=== PATIENT | female | born 1970 | race Caucasian/White ===

== ENCOUNTER 2025-10-12 06:28 | Emergency (ER) | payer BC, SELFPAY ==
[2025-10-12 06:41] VITALS: BP 162/92; PULSE 102; TEMP 38.6; O2SAT 92; BMI 32.1
[2025-10-12 06:53] VITALS: O2SAT 92
--- NOTE | 2025-10-12 07:04 | XR_ITS ---
[facility] [id number] Patient Name: REMY MICHELE MRN: [id number] date: 1970 Sex: F Assigned Patient Location: ED.MAIN Current Patient Location: ED.MAIN Accession/Order Number: [id number] Exam Date: 10/12/2025 07:15 Report Date: 10/12/2025 17:26 At the request of: LORENA BRADLEY DO Procedure: XR chest 2V Plain film chest Single view HISTORY: Cough. COMPARISON: None FINDINGS: SUPPORT DEVICES: None POSTSURGICAL CHANGES: None HEART: Within normal limits PULMONARY MARIAX: Within normal limits MEDIASTINUM: Unremarkable LUNGS AND PLEURA: No acute lung process, pleural effusion or pneumothorax identified. BONY STRUCTURES: Intact ADDITIONAL FINDINGS None XR/XR chest 2V IMPRESSION: No acute process. Impression dictated by: Niles Schaeffer M.D. 10/12/2025 5:26 PM Dictation Location: [place] [address] Electronically authenticated by: [id number] Y Date: 10/12/2025 17:26
--- OUTSIDE RECORDS SUMMARY | 2025-10-12 07:07 | XMS_ITS | Clinical Summary ---
Author Organization [facility] Address [id number] [place] [address] Care Team Providers Care Corn Sheller Name Role Phone Lroena Rush MD Primary Care Provider + [phone] Allergies Active AllergyReactionsCriticalityNoted OkifWetspiluEzcyituhzXtpzmmfj92/08/2018 UkccbedxawibHmmwEhjnmc84/08/0432AamvqkrzixnzzRvmlFnl55/08/2018PenicillinsOther (See Comments)05/26/2018 CAN NOT BREATHE Medications MedicationSigDispense QuantityRefillsLast FilledStart DateEnd DateStatus tamsulosin (FLOMAX) 0.4 mg capsule Take 1 capsule (0.4 mg total) by mouth nightly. 30 capsule ctive Active Problems ProblemNoted DateDiagnosed DateKidney sangyu0010/19/1984 Overview (02/13/2021): ==== 02/13/2021 ==== Multiple history stones over many years. Last intervention was over 10 years ago. Most recently within last several days onset left-sided discomfort. 3 mm proximal calculus. No evidence of any fever. Previous to be migrating given the change in her pain now try left front. 3 mm proximal stone. High degree of potential passage with medical expulsion therapy. Appears calcified based on the KUB portion of CT. Plan: Start medical expulsion therapy with the addition of Flomax. Strain urine. Supportive care. Return clinic about 3 weeks or so with a KUB and renal ultrasound. Assessment & Plan (02/13/2021 1:34 PM EDT): I discussed with the patient the initial intent for medical expulsive therapy to try to assist in stone passage. We discussed the medication employed for this strategy as well as the need for hydration and straining urine. They understand that there is a decent chance that, with time, there could be spontaneous stone passage. They also understand that a lack of pain would not necessarily indicate successful stone passage and certainly we need to either have the patient bring in the passed stoneor confirm radiographically that the stone has passed. They understand fully that failure to do so could result in loss of kidney function/loss of kidney/severe infection. Family History Medical HistoryRelationNameCommentsNo Known ProblemsFatherDiabetesMaternal GrandmotherCOPDMotherDepressionMotherRelationNameStatusCommentsFatherOther Maternal GrandmotherMotherDeceased Social History Tobacco UseTypesPacks/DayYears UsedDateSmoking Tobacco: Every DayCigarettes Vaping/E-cigarettesSmokeless Tobacco: Never Tobacco Cessation:Ready to Q uit: No; Counseling Given: Yes Comments:not interested in quitting at this time Alcohol UseStandard Drinks/WeekCommentsNo0 (1 standard drink = 0.6 oz pure alcohol)ChildcareAnswerDate DsmtemkpFfptvnthhFvgooqn38/12/2019EmploymentAnswer Date OnkxbepcCvartnvtwnRggmygu73/12/2019Purpose - LifeAnswerDate RecordedPurpose and direction in ozbzEoyyuob33/11/2021CommentsNoSex and Gender InformationValueDate RecordedSex Assigned at BirthNot on fileLegal SexFemale 05/24/2015 11:32 AM EDTGender IdentityNot on fileSexual OrientationNot on file Last Filed Vital Signs Vital SignReadingTime TakenCommentsBlood Asxjivda198/09789 1:16 PM EDT Dhmuk8010 1:16 PM FZOSdeinysczdo99.7 ??C (98 ??F)02/11/2021 10:42 PM EDT Respiratory Ndad6547 1:16 PM EDTOxygen Ekjyrehtcb04%02/11/2021 11:33 PM EDTInhaled Oxygen Concentration--Dpmgdp28.1 kg (170 lb)02/13/2021 1:16 PM EDT Krmoww184.5 cm (5' 2 )02/13/2021 1:16 PM EDTBody Mass Index31.0902/13/2021 1:16 PM EDT Plan of Treatment Health MaintenanceDue DateLast DoneCommentsDepression Ojgnuackx74/01/1984Tobacco Uypmtuurm43/01/1984Adult BMI Zarrthunk57/01/1990Zoster (Shingles) Vaccine (1 of 2)2022Influenza Opohtgm9306/19/2025DTaP,Tdap and Td Vaccines (2 - Td or Tdap) Medical Devices Not on file Insurance Care Teams Team MemberRelationshipSpecialtyStart DateEnd Lorena Rush MD [address] [place] [id number] PCP - GeneralFamily Medicine04/26/18
[2025-10-12 07:26] LABS: SARS-CoV-2 Ag NEGATIVE (NEGATIVE)
[2025-10-12] MEDS: ACETAMINOPHEN 500 MG TABLET 1000 MG PO (07:37)
[2025-10-12 07:44] VITALS: BP 120/90; PULSE 76; O2SAT 95
--- NOTE | 2025-10-12 07:45 | ED_ITS ---
HPI HPI - General Adult General Chief complaint: Upper Respiratory Infection Stated complaint: COUGH, RADHA RIB PAIN Time Seen by Provider: 10/12/25 07:03 Source: patient Mode of arrival: walk-in History of Present Illness HPI narrative: Patient is a 55-year-old female, history significant for COPD not on home oxygen, presenting to the emergency department for 2-day history of flulike symptoms. The patient has been experiencing cough, congestion, fatigue, myalgias for the last 48 hours. She has been using Vicks vapor rub at home, however this has not seemed to help her symptoms. She notes low-grade fevers, but has not taken any Tylenol or Motrin today. She has albuterol and a nebulizer at home for COPD, however she has not needed to use these in a long time. She is otherwise healthy with no other chronic medical conditions. She takes no other prescription medications. She still smokes half a pack of cigarettes daily. She denies any active chest pain. No abdominal pain or vomiting. Related Data Previous Rx's ?Medication ?Instructions ?Recorded oseltamivir 75 mg capsule (Tamiflu) 75 mg PO BID 5 day s #10 caps 10/12/25 Allergies Allergy/AdvReac Type Severity Reaction Status Date / Time cortisone Allergy lump in arm Verified 10/12/25 06:40 Penicillins Allergy throat Verified 10/12/25 06:40 swelling Opioid HPI Opioid Management Most Recent Opioid Data: Last DEC Pain Assessment Today, 07:37 Review of Systems ROS Status of ROS 10 or more systems reviewed and unremark able except as noted in history and below PFSH PFSH Social History Little interest or pleasure in doing things: not at all Feeling down, depressed, or hopeless: not at all Exam Narrative Exam Narrative: CONSTITUTIONAL: Patient appears ill but nontoxic, mentating appropriately, speaking in full sentences, answering questions and following commands appropriately SKIN: Was warm and dry. EYES: Sclerae white. EARS, NOSE, THROAT: Moist oral mucosa. RESPIRATORY: Clear to auscultation bilaterally, no wheezes, crackles, or stridor, no use of accessory muscles CARDIOVASCULAR: Normal rate and regular rhythm. There is no S3, S4, murmur, rub. GASTROINTESTINAL: Abdomen is nondistended. MUSCULOSKELETAL: No peripheral edema. NEUROLOGIC: Patient is awake and alert. Facies were symmetrical. Constitutional Vital Signs, click to edit/add: Last Vital Signs Temp 101.4 F H 10/12/25 06:41 Pulse 76 10/12/25 07:44 Resp 16 10/12/25 07:44 BP 120/90 10/12/25 07:44 Pulse Ox 95 10/12/25 07:44 O2 Del Method Room Air 10/12/25 07:44 Course Vital Signs Vital signs: Vital Signs Temperature 101.4 F H 10/12/25 06:41 Pulse Rate 102 H 10/12/25 06:41 Respiratory Rate 22 H 10/12/25 06:41 Blood Pressure 162/92 H 10/12/25 06:41 Pulse Oximetry 92 L 10/12/25 06:41 Oxygen Delivery Method Room Air 10/12/25 06:41 Temperature 101.4 F H 10/12/25 06:41 Pulse Rate 76 10/12/25 07:44 Respiratory Rate 16 10/12/25 07:44 Blood Pressure 120/90 10/12/25 07:44 Pulse Oximetry 95 10/12/25 07:44 Oxygen Delivery Method Room Air 10/12/25 07:44 Medical Decision Making MDM Narrative Medical decision making narrative: Patient is a 55-year-old female, history significant for COPD, presenting to the emergency department for evaluation of flulike symptoms x 2 days. Her vital signs on arrival were significant for hypertension, mild tachycardia, mild tachypnea, low-grade fever 101.4 ?F. Her oxygen saturations flucuate from 92- 95% on room air with clear breath sounds bilaterally and in no respiratory distress. Differential diagnosis includes COVID/flu/viral infection, pneumonia. I did consider COPD exacerbation, though the patient has no wheezing on exam. Overall, her COPD seems to be well-controlled as she has not needed bronchodilators in a long time per the patient. Viral swabs and chest x-ray were obtained. She was given Tylenol for her fever. Viral swabs were positive for influenza A. Chest x-ray independently reviewed/interpreted by myself and radiology demonstrated hyperinflated lungs without focal consolidations or other acute cardiopulmonary process. I do believe the patient is stable for discharge. They were instructed to follow up with her PCP in the next 5 to 7 days for checkup. She is tolerating p.o., and instructed to aggressively rehydrate at home. Return precautions were given including any new or worsening symptoms, including worsening shortness of breath. They were given a prescription for Tamiflu 75 mg twice daily x 5 days. Patient understands and agrees to the plan. FINAL IMPRESSION: #Acute influenza A infection #History of COPD DISPOSITION: Discharged home CONDITION: Fair Lab Data Lab results reviewed: Yes I reviewed the patient's lab results Labs: Lab Results 10/12/25 Range/Units 06:50 Influenza Type A Ag Positive A Influenza Type B Ag Negative SARS-CoV-2 Ag (CV2AG) Negative (NEGATIVE) Imaging Data Chest x-ray: Attestation: I personally reviewed and interpreted this imaging study as follows: Discharge Plan Discharge Chief Complaint: Upper Respiratory Infection Clinical Impression: Influenza Patient Disposition: Home, Self-Care Time of Disposition Decision: 07:38 Condition: Fair Mode of Transportation: Private Vehicle Prescriptions / Home Meds: New oseltamivir [Tamiflu] 75 mg capsule 75 mg PO BID 5 Days Qty: 10 0RF Print Language: Macedonian Instructions: Influenza (ED) Referrals: Physician,Non-Staff, MD [Primary Care Provider] - 1 week Discharge Date/Time: 10/12/25 07:45
== END 2025-10-12 07:45 | disposition home or self-care (01) ==
PROVIDERS: Emergency Provider Student in an Organized Health Care Education/Training Program
DX: J10.1 Influenza due to other identified influenza virus with other respiratory manifestations (principal); R05.9 Cough, unspecified; R50.9 Fever, unspecified; R53.83 Other fatigue
CPT/HCPCS: 71046; 87804; 87811; 99283